=== PATIENT | male | born 1950 | race Caucasian/White ===

== ENCOUNTER 2017-09-23 07:45 | Day surgery (SDC) | payer BC, MEDICARE ==
[2017-09-21 09:32] VITALS: BMI 23.7
[2017-09-23 08:17] LABS: BASO # 0.03 K/mm3 (0.0-2.0); BASO % 0.4 % (0.0-3.0); EOS # 1.4 (0.0-0.7); EOS % 19.1 % (1.5-5.0); GRAN # 3.62 (1.4-6.5); GRAN % 49.5 % (50.0-68.0); HEMOGLOBIN 15.1 g/dL (14.0-18.0); LYMPH % 26.8 % (22.0-35.0); MEAN CELL VOLUME 83.4 fl (80.0-105.0); MEAN CORPUSCULAR HEMOGLOBIN 28.8 pg (25.0-35.0); MEAN CORPUSCULAR HGB CONC 34.5 g/dl (31.0-37.0); MEAN PLATELET VOLUME 9.8 fl (7.0-11.0); MONO # 0.3 (0.1-0.6); MONO % 4.2 % (1.0-6.0); RBC 5.25 10^6/uL (3.5-6.1); RED CELL DISTRIBUTION WIDTH 13.6 % (11.5-14.5); WHITE BLOOD COUNT 7.3 10^3/ul (4.5-11.0)
[2017-09-23 08:27] LABS: INR 0.97; PARTIAL THROMBOPLASTIN TIME 30.7 Seconds (25.1-36.5); PROTHROMBIN TIME 11.1 SECONDS (9.4-12.5)
[2017-09-23 08:28] LABS: BLOOD UREA NITROGEN 18 mg/dL (7-21); CALCIUM 10.2 mg/dL (8.4-10.5); GFR AFRICAN-AMERICAN > 60; GFR NON-AFRICAN AMERICAN > 60
[2017-09-23] MEDS ORDERED: Midazolam 2 MG/2 ML VIAL ONE (09:43)
[2017-09-23 10:51] VITALS: O2SAT 99
[2017-09-23] MEDS ORDERED: Midazolam 2 MG/2 ML VIAL IVP ONE (11:03)
[2017-09-23 11:10] VITALS: BP 153/83; PULSE 65; RESP 18; TEMP 97.8
--- NOTE | 2017-09-23 17:42 | CT ---
The previously noted nodule in left lower lobe is no longer appreciated. The results were forwarded to Dr. Otoole A follow-up CT scan 3-6 months may be useful
== END 2017-09-23 11:45 | disposition home or self-care (01) ==
LOC: SDS 07:45
PROVIDERS: ATTEND Radiology Vascular & Interventional Radiology
DX: R91.1 Solitary pulmonary nodule (principal)
CPT/HCPCS: 36415; 71250; 80048; 85025; 85610; 85730; J2250; J3010